=== PATIENT | female | born 1970 | race African-American/Black ===

== ENCOUNTER 2019-10-05 01:27 | Emergency (ER) | payer MEDICAID, OTHER ==
[~2019-10-05] VITALS: Ht 170.2 cm; Wt 150.0 kg
[2019-10-05 03:03] LABS: BASOPHILS % 0.5 % (0.0-2.0); EOSINOPHILS % 2.2 % (0.0-5.0); HEMATOCRIT. 41.7 % (36.0-48.0); HEMOGLOBIN. 13.4 g/dL (12.0-16.0); LYMPHOCYTES % 17.3 % (20.0-50.0); MEAN CORPUSCULAR HEMOGLOBIN 23.9 pg (28.0-32.0); MEAN CORPUSCULAR VOLUME 74.6 fL (81.0-99.0); MEAN PLATELET VOLUME 7.8 fl (7.4-10.4); MONOCYTES % 7.2 % (2.0-8.0); NEUTROPHILS % 72.8 % (40.0-76.0); PLATELET 272 x1000/uL (130-400); RED BLOOD CELL COUNT 5.59 mill/uL (4.2-5.4); RED CELL DISTRIBUTION WIDTH 20.3 % (11.6-14.6)
[2019-10-05 03:08] LABS: CHLORIDE 110 mEq/L (98-107)
[2019-10-05 05:33] VITALS: BP 165/82
== END 2019-10-05 05:33 | disposition home or self-care (01) ==
LOC: ER 02:16
DX: R07.9 Chest pain, unspecified (principal); I10 Essential (primary) hypertension; E78.00 Pure hypercholesterolemia, unspecified; Z98.84 Bariatric surgery status
CPT/HCPCS: 36415; 71045; 80053; 83880; 84484; 85025; 93005; 99284